=== PATIENT | female | born 2000 | race Caucasian/White ===

== ENCOUNTER 2022-01-17 12:00 | Emergency (ER) | payer OTHER ==
[2022-01-17 12:51] LABS: #Basophils 0.1 10x3/uL (0.0-0.2); #Eosinphils 0.2 10x3/uL (0.0-0.5); #Monocytes 0.8 10x3/uL (0.0-1.1); %Basophils 0.5 % (0.0-2.0); %Eosinophils 2.5 % (0.0-6.0); %Lymphocytes 24.8 % (18.0-47.0); %Neutrophils 63.4 % (40.0-75.0); Hemoglobin 11.8 g/dL (12.0-15.5); Mean Corpuscular HGB CONC 33.3 g/dL (32.0-36.0); Mean Corpuscular Hemoglobin 25.1 pg (27.0-33.0); Mean Corpuscular Volume 75.2 fl (81.6-98.3); Mean Platelet Volume 9.2 fl (7.4-10.4); Platelet Count 509 10x3/uL (150-450); RBC Distribution Width 12.9 % (11.5-14.5); Red Blood Cell (RBC) Count 4.71 10x6/uL (3.90-5.03); White Blood Cell (WBC) Count 9.5 10x3/uL (3.5-10.5)
[2022-01-17 12:52] LABS: Bilirubin Neg (Negative); Blood, Urine Negative (Negative); Clarity Clear (Clear); Glucose, Urine (Dipstick) Normal (Negative); Ketone, Urine Negative (Negative); Leukocyte Negative (Negative); Nitrite Negative (Negative); Protein, Urine (Dipstick) Negative (Neg-Trace); Urobilinogen Normal mg/dL (Less than 2)
[2022-01-17 13:03] LABS: ALT (SGPT) 39 U/L (8-55); AST (SGOT) 26 U/L (5-34); Albumin 4.5 g/dL (3.5-5.0); Alkaline Phosphatase 102 U/L (40-100); Anion Gap 12 mmol/L (10-20); BUN (Urea Nitrogen) 7 mg/dL (7.0-18.7); Bilirubin, Total 0.4 mg/dL (0.2-1.2); Calc. Creatinine Clearance 0 mL/min (70-130); Calcium 9.3 mg/dL (7.8-10.44); Carbon Dioxide 22 mmol/L (22-29); Chloride 105 mmol/L (98-107); Estimated GFR 127; Globulin 3.3 g/dL (2.4-3.5); Glucose 96 mg/dL (70-105); Potassium 3.8 mmol/L (3.5-5.1); Protein, Total 7.8 g/dL (6.0-8.3); Sodium 135 mmol/L (136-145)
[2022-01-18 13:16] LABS: GC by PCR *Indeterminate (NotDetected)
[2022-01-18 13:17] LABS: Chlamydia by PCR *Indeterminate (NotDetected)
== END 2022-01-17 16:10 | disposition home or self-care (01) ==
LOC: CSHERS 12:00
DX: O20.0 Threatened abortion (principal); Z3A.01 Less than 8 weeks gestation of pregnancy
CPT/HCPCS: 36415; 76856; 80053; 81003; 84702; 85025; 86900; 86901; 87480; 87491; 87510; 87591; 87660

== ENCOUNTER → 2022-08-10 | Day surgery (SDC) | payer OTHER ==
[~2022-08-10] MED LIST: Acetaminophen 500 MG TAB ONE; Acetaminophen 500 MG TAB PO SCH; Iron Sucrose Complex 500 MG in Sodium Chloride 0.9% 250 ML 250 ML IVPB SCH
== END ==
LOC: CSHSDC 09:40
PROVIDERS: ATTEND Student in an Organized Health Care Education/Training Program
DX: O99.019 Anemia complicating pregnancy, unspecified trimester (principal); D64.9 Anemia, unspecified
CPT/HCPCS: J1756; J7050

== ENCOUNTER 2022-08-11 17:46 | Day surgery (SDC) | payer OTHER ==
[2022-08-11] MEDS ORDERED: hydrALAZINE 20 MG/ML VIAL SLOW IVP PRN (19:16)
[2022-08-11 19:19] VITALS: BMI 41.3
== END 2022-08-11 20:07 | disposition home or self-care (01) ==
LOC: CSHERS 17:46 → CSHLD/OP 17:46 → CSHERS 17:46 → EDSTATUS 18:02 → CSHLD/OP 18:28
PROVIDERS: ATTEND Student in an Organized Health Care Education/Training Program
DX: O99.413 Diseases of the circulatory system complicating pregnancy, third trimester (principal); R00.0 Tachycardia, unspecified; O99.213 Obesity complicating pregnancy, third trimester; E66.9 Obesity, unspecified; O99.013 Anemia complicating pregnancy, third trimester; D64.9 Anemia, unspecified; O99.613 Diseases of the digestive system complicating pregnancy, third trimester; K21.9 Gastro-esophageal reflux disease without esophagitis; O10.013 Pre-existing essential hypertension complicating pregnancy, third trimester; Z90.89 Acquired absence of other organs; Z88.4 Allergy status to anesthetic agent; Z3A.34 34 weeks gestation of pregnancy
CPT/HCPCS: 99282; 99283

== ENCOUNTER 2022-09-12 10:47 | Inpatient (IN) | payer OTHER ==
[~2022-09-12 10:47] MED LIST changes: -Acetaminophen 500 MG TAB ONE; -Acetaminophen 500 MG TAB PO SCH; -Iron Sucrose Complex 500 MG in Sodium Chloride 0.9% 250 ML 250 ML IVPB SCH; +ePHEDrine 50 MG/ML VIAL ONE
[2022-09-12] MEDS ORDERED: hydrALAZINE 20 MG/ML VIAL SLOW IVP PRN ×4 (11:54→17:18)
[2022-09-12] MEDS ORDERED: Lactated Ringer's 1,000 ML IV SCH (12:15)
[2022-09-12 12:54] LABS: #Eosinphils 0.2 10x3/uL (0.0-0.5); #Monocytes 0.7 10x3/uL (0.0-1.1); #Neutrophils 9.8 10x3/uL (1.5-8.4); %Basophils 0.3 % (0.0-2.0); %Eosinophils 1.7 % (0.0-6.0); %Lymphocytes 11.8 % (18.0-47.0); %Neutrophils 79.6 % (40.0-75.0); Hemoglobin 10.8 g/dL (12.0-15.5); Mean Corpuscular HGB CONC 32.1 g/dL (32.0-36.0); Mean Corpuscular Hemoglobin 23.1 pg (27.0-33.0); Mean Corpuscular Volume 71.9 fl (81.6-98.3); Mean Platelet Volume 10.1 fl (7.4-10.4); Platelet Count 323 10x3/uL (150-450); RBC Distribution Width 17.6 % (11.5-14.5); Red Blood Cell (RBC) Count 4.67 10x6/uL (3.90-5.03); White Blood Cell (WBC) Count 12.3 10x3/uL (3.5-10.5)
[2022-09-12 13:04] LABS: ALT (SGPT) 14 U/L (8-55); AST (SGOT) 15 U/L (5-34); Albumin 3.4 g/dL (3.5-5.0); Alkaline Phosphatase 218 U/L (40-110); Anion Gap 15 mmol/L (10-20); BUN (Urea Nitrogen) 8 mg/dL (7.0-18.7); Bilirubin, Total 0.2 mg/dL (0.2-1.2); Calc. Creatinine Clearance 0 mL/min (70-130); Calcium 8.8 mg/dL (7.8-10.44); Carbon Dioxide 20 mmol/L (22-29); Chloride 105 mmol/L (98-107); Estimated GFR 130; Globulin 2.8 g/dL (2.4-3.5); Glucose 91 mg/dL (70-105); Potassium 3.7 mmol/L (3.5-5.1); Protein, Total 6.2 g/dL (6.0-8.3); Sodium 136 mmol/L (136-145)
[2022-09-12 13:10] LABS: Creatinine, Urine 176.59 mg/dL (47-110)
[2022-09-12] MEDS ORDERED: Misoprostol 200 MCG TAB PR PRN (15:00)
[2022-09-12] MEDS ORDERED: Methylergonovine 0.2 MG/ML VIAL IM PRN (15:00)
[2022-09-12] MEDS ORDERED: Promethazine HCl 25 MG/ML VIAL IM PRN (15:00)
[2022-09-12] MEDS ORDERED: Tranexamic Acid 1,000 MG/10 ML VIAL IVP PRN (15:00)
[2022-09-12] MEDS ORDERED: Ibuprofen 800 MG TAB PO PRN (15:00)
[2022-09-12] MEDS ORDERED: Ondansetron PF 4 MG/2 ML Vial IVP PRN (15:00)
[2022-09-12] MEDS ORDERED: Carboprost 250 MCG/ML AMP IM PRN (15:00)
[2022-09-12] MEDS ORDERED: NS w/ Oxytocin 30 units 500 ML IV SCH ×2 (15:00)
[2022-09-12] MEDS ORDERED: Acetaminophen 500 MG TAB PO PRN (15:00)
[2022-09-12 15:44] VITALS: BMI 42.0
[2022-09-12 15:47] LABS: Syphilis Antibody Nonreactive (Nonreactive); Syphilis Antibody Index 0.04 S/CO (<1.00 Non-Reactive)
[2022-09-12 15:49] LABS: HBSAg Index 0.15 S/CO (0-0.99); Hep B Surf Ag - L&D Non-Reactive S/CO (NonReactive)
[2022-09-12] MEDS ORDERED: Lorazepam 2 MG/ML VIAL SLOW IVP PRN (17:18)
[2022-09-12] MEDS ORDERED: Labetalol HCl 100 MG/20 ML VIAL SLOW IVP PRN ×2 (17:18)
[2022-09-12] MEDS ORDERED: Calcium Gluc 4.6 MEQ/10 ML (100 MG/ML) SLOW IVP PRN (17:18)
[2022-09-12] MEDS: Magnesium Sulfate 20 gm/500 ml 20 GM/500 ML BAG IVPB SCH (17:36)
[2022-09-12] MEDS: Misoprostol 100 MCG TAB VAG SCH ×3 (19:00→23:49)
[2022-09-13] MEDS ORDERED: fentaNYL 50 mcg/mL 1 mL Vial SLOW IVP PRN ×2 (02:58→05:10)
[2022-09-13] MEDS: Misoprostol 100 MCG TAB VAG SCH (05:00)
[2022-09-13] MEDS ORDERED: fentaNYL/Ropivacaine Epidural 0 ML ONE (07:05)
[2022-09-13] MEDS ORDERED: Chloroprocaine 3% PF 20 ML VIAL ONE (08:21)
[2022-09-13] MEDS ORDERED: Morphine PF 10 MG/10 ML VIAL ONE (08:21)
[2022-09-13] MEDS: ePHEDrine Sulfate 50 MG/10 ML VIAL SLOW IVP PRN ×2 (09:30→13:45)
[2022-09-13] MEDS ORDERED: diphenhydrAMINE 50 MG/ML VIAL IVP PRN (09:41)
[2022-09-13] MEDS ORDERED: Moisturizing Cream (Eucerin) 113 GM JAR TOP PRN (09:41)
[2022-09-13] MEDS ORDERED: Naloxone HCl 0.4 mg/ml Vial IVP PRN ×2 (09:41)
[2022-09-13] MEDS ORDERED: Ondansetron PF 4 MG/2 ML Vial IVP PRN (09:41)
[2022-09-13] MEDS ORDERED: Lactated Ringer's 500 ML IV PRN (09:41)
[2022-09-13] MEDS ORDERED: Promethazine HCl 25 MG/ML VIAL IM PRN (09:41)
[2022-09-13] MEDS ORDERED: Acetaminophen 325 MG TAB PO PRN (09:41)
[2022-09-13] MEDS ORDERED: Communication Order-Pharmacy FS SCH (09:45)
[2022-09-13] MEDS ORDERED: Lactated Ringer's 500 ML IV SCH (10:00)
[2022-09-13] MEDS ORDERED: Water For Injection,Sterile 20 ML ONE (13:05)
[2022-09-13] MEDS: Magnesium Sulfate 20 gm/500 ml 20 GM/500 ML BAG IVPB SCH (13:39)
[2022-09-13] MEDS ORDERED: fentaNYL 50 mcg/mL 1 mL Vial ONE (16:18)
[2022-09-13] MEDS ORDERED: Misoprostol 200 MCG TAB ONE (17:18)
[2022-09-13] MEDS ORDERED: Carboprost 250 MCG/ML AMP ONE (17:18)
[2022-09-13] MEDS ORDERED: Loperamide HCl 2 MG CAP PO PRN (18:02)
[2022-09-13] MEDS ORDERED: Misoprostol 200 MCG TAB PR PRN (18:03)
[2022-09-13] MEDS ORDERED: Bisacodyl 10 MG SUPP PR PRN (18:21)
[2022-09-13] MEDS ORDERED: Milk Of Magnesia 30 ML UDCUP PO PRN (18:21)
[2022-09-13] MEDS ORDERED: Boostrix 0.5 ML (Tdap) VIAL (>/=7 yrs of age) IM ONE (18:21)
[2022-09-13] MEDS ORDERED: hydrALAZINE 20 MG/ML VIAL SLOW IVP PRN (18:21)
[2022-09-13] MEDS ORDERED: CEFAZOLIN 1 GM VIAL SLOW IVP SCH (19:00)
[2022-09-13] MEDS ORDERED: CEFAZOLIN 2 GM in Sodium Chloride 0.9% 100 ML IVPB SCH (19:15)
[2022-09-13] MEDS ORDERED: Ibuprofen 800 MG TAB PO PRN (19:25)
[2022-09-13] MEDS ORDERED: Magnesium Sulfate 20 GM/WATER 500 ML BAG IVPB SCH (21:15)
[2022-09-14] MEDS: Magnesium Sulfate 20 gm/500 ml 20 GM/500 ML BAG IVPB SCH ×2 (00:33→11:30)
[2022-09-14 07:22] LABS: Hemoglobin 9.9 g/dL (12.0-15.5)
[2022-09-14] MEDS: Docusate 100 MG CAP PO SCH (21:08)
[2022-09-15] MEDS: Ferrous Sulfate 325 MG TAB PO SCH ×3 (07:33→17:14)
[2022-09-15] MEDS: Docusate 100 MG CAP PO SCH ×4 (07:33→22:27)
[2022-09-15 08:22] LABS: #Eosinphils 0.1 10x3/uL (0.0-0.5); #Monocytes 0.9 10x3/uL (0.0-1.1); #Neutrophils 9.8 10x3/uL (1.5-8.4); %Basophils 0.2 % (0.0-2.0); %Eosinophils 0.8 % (0.0-6.0); %Lymphocytes 16.8 % (18.0-47.0); %Neutrophils 74.7 % (40.0-75.0); Mean Corpuscular HGB CONC 31.2 g/dL (32.0-36.0); Mean Corpuscular Hemoglobin 22.9 pg (27.0-33.0); Mean Corpuscular Volume 73.6 fl (81.6-98.3); Mean Platelet Volume 10.3 fl (7.4-10.4); Platelet Count 408 10x3/uL (150-450); RBC Distribution Width 18.4 % (11.5-14.5); Red Blood Cell (RBC) Count 4.36 10x6/uL (3.90-5.03); White Blood Cell (WBC) Count 13.2 10x3/uL (3.5-10.5)
[2022-09-16] MEDS: Ferrous Sulfate 325 MG TAB PO SCH ×2 (09:12→10:15)
[2022-09-16] MEDS: Docusate 100 MG CAP PO SCH ×2 (09:12→10:15)
[2022-09-16 18:02] VITALS: BP 130/83; TEMP 99
== END 2022-09-16 13:11 | disposition home or self-care (01) | DRG 806 ==
LOC: CSHLD/OP 10:47 → CSHLD 17:13 → CSHPP 09-14 18:34
PROVIDERS: ADMIT Obstetrics & Gynecology; ATTEND Obstetrics & Gynecology
PROC: 3E0P7VZ Introduction of Hormone into Female Reproductive, Via Natural or Artificial Opening (ICD-10-PCS; 2022-09-12)
PROC: 10E0XZZ Delivery of Products of Conception, External Approach (ICD-10-PCS; principal; 2022-09-13)
PROC: 0HQ9XZZ Repair Perineum Skin, External Approach (ICD-10-PCS; 2022-09-13)
PROC: 10907ZC Drainage of Amniotic Fluid, Therapeutic from Products of Conception, Via Natural or Artificial Opening (ICD-10-PCS; 2022-09-13)
PROC: 10H07YZ Insertion of Other Device into Products of Conception, Via Natural or Artificial Opening (ICD-10-PCS; 2022-09-13)
DX: O10.92 Unspecified pre-existing hypertension complicating childbirth (principal); O72.1 Other immediate postpartum hemorrhage; Z37.0 Single live birth; Z3A.38 38 weeks gestation of pregnancy; Z90.89 Acquired absence of other organs; Z79.82 Long term (current) use of aspirin; Z79.899 Other long term (current) drug therapy; Z88.8 Allergy status to other drugs, medicaments and biological substances; O99.214 Obesity complicating childbirth; E66.9 Obesity, unspecified; O70.0 First degree perineal laceration during delivery; O11.4 Pre-existing hypertension with pre-eclampsia, complicating childbirth; O77.0 Labor and delivery complicated by meconium in amniotic fluid; D50.9 Iron deficiency anemia, unspecified; O90.81 Anemia of the puerperium; K21.9 Gastro-esophageal reflux disease without esophagitis; O99.62 Diseases of the digestive system complicating childbirth
CPT/HCPCS: 36415; 51702; 80053; 82570; 82805; 84156; 85014; 85018; 85025; 86780; 86850; 86900; 86901; 87340; 99285; J0360; J2274; J2401; J2405; J2590; J3010; J3475; J3490

== ENCOUNTER 2024-12-19 09:52 | Observation (INO) | payer BC, MEDICAID ==
[2024-12-19] MEDS ORDERED: Carboprost 250 MCG/ML AMP IM PRN (10:00)
[2024-12-19] MEDS ORDERED: Ondansetron PF 4 MG/2 ML Vial IVP PRN (10:00)
[2024-12-19] MEDS ORDERED: hydrALAZINE 20 MG/ML VIAL SLOW IVP PRN (10:00)
[2024-12-19] MEDS ORDERED: Acetaminophen 500 MG TAB PO PRN (10:00)
[2024-12-19] MEDS ORDERED: Tranexamic Acid 1,000 MG/10 ML VIAL IVP PRN (10:00)
[2024-12-19] MEDS ORDERED: Diphenoxylate HCl/Atropine Tablet PO PRN (10:00)
[2024-12-19] MEDS ORDERED: Methylergonovine 0.2 MG/ML VIAL IM PRN (10:00)
[2024-12-19] MEDS ORDERED: Oxytocin 30 units/NS 500 ML 500 ML IV SCH (10:00)
[2024-12-19 10:30] VITALS: BMI 44.4
[2024-12-19 10:59] LABS: Hematocrit 33.5 % (34.9-44.5); Hemoglobin 10.3 g/dL (12.0-15.5); Mean Corpuscular Hemoglobin 22.2 pg (27.0-33.0); Mean Corpuscular Volume 72.0 fL (81.6-98.3); Platelet Count 307 10x3/uL (150-450); Red Blood Cell (RBC) Count 4.65 10x6/uL (3.90-5.03); White Blood Cell (WBC) Count 10.67 10x3/uL (3.5-10.5)
[2024-12-19] MEDS ORDERED: Mineral Oil ENEMA FS SCH (11:15)
[2024-12-19 11:38] LABS: Hep B Surf Ag - L&D Non-Reactive S/CO (NonReactive)
[2024-12-19 11:39] LABS: Syphilis Antibody Index 0.05 S/CO (<1.00 Non-Reactive)
== END 2024-12-19 12:20 | disposition home or self-care (01) ==
LOC: CSHLD 09:52
PROVIDERS: ADMIT Obstetrics & Gynecology; ATTEND Obstetrics & Gynecology
DX: O32.1XX0 Maternal care for breech presentation, not applicable or unspecified (principal); O99.213 Obesity complicating pregnancy, third trimester; E66.9 Obesity, unspecified; Z3A.37 37 weeks gestation of pregnancy; Z88.8 Allergy status to other drugs, medicaments and biological substances
CPT/HCPCS: 76815; 85027; 86780; 86850; 86900; 86901; 87340; G0378

== ENCOUNTER 2025-01-02 05:03 | Inpatient (IN) | payer BC, MEDICAID ==
[~2025-01-02 05:03] MED LIST changes: +Azithromycin 500 MG in Sodium Chloride 0.9% 250 ML 250 ML IVPB SCH; +Bicitra 30 ML UDCUP PO PRN; +Carboprost 250 MCG/ML AMP IM PRN; +Diphenoxylate HCl/Atropine Tablet PO PRN; +Famotidine/PF 20 mg/2ml Vial SLOW IVP PRN; +Methylergonovine 0.2 MG/ML VIAL IM PRN; +Ondansetron PF 4 MG/2 ML Vial IVP PRN; +Oxytocin 30 units/NS 500 ML 500 ML IV SCH; +Tranexamic Acid 1,000 MG/10 ML VIAL IVP PRN; -ePHEDrine 50 MG/ML VIAL ONE; +hydrALAZINE 20 MG/ML VIAL SLOW IVP PRN
[2025-01-02 05:35] VITALS: BMI 45.7
[2025-01-02 06:42] LABS: Hematocrit 33.2 % (34.9-44.5); Hemoglobin 10.6 g/dL (12.0-15.5); Mean Corpuscular Hemoglobin 22.6 pg (27.0-33.0); Mean Corpuscular Volume 70.8 fL (81.6-98.3); Platelet Count 321 10x3/uL (150-450); Red Blood Cell (RBC) Count 4.69 10x6/uL (3.90-5.03); White Blood Cell (WBC) Count 11.94 10x3/uL (3.5-10.5)
[2025-01-02] MEDS ORDERED: Meperidine HCl/PF 25 MG (1 mL) VIAL SLOW IVP PRN (06:42)
[2025-01-02] MEDS ORDERED: Ondansetron PF 4 MG/2 ML Vial IVP PRN ×3 (06:42→08:49)
[2025-01-02] MEDS ORDERED: HYDROmorphone 0.5 MG/0.5 ML SYRINGE SLOW IVP PRN (06:42)
[2025-01-02] MEDS ORDERED: diphenhydrAMINE 50 MG/ML VIAL IVP PRN (06:42)
[2025-01-02] MEDS ORDERED: Ketorolac Tromethamine 30 MG (1 mL) VIAL IVP SCH (06:45)
[2025-01-02] MEDS: Azithromycin 500 MG VIAL ONE (07:15)
[2025-01-02 07:21] LABS: Syphilis Antibody Index 0.06 S/CO (<1.00 Non-Reactive)
[2025-01-02 07:22] LABS: Hep B Surf Ag - L&D Non-Reactive S/CO (NonReactive)
[2025-01-02] MEDS ORDERED: hydrALAZINE 20 MG/ML VIAL SLOW IVP PRN ×3 (08:49→09:00)
[2025-01-02] MEDS ORDERED: Methylergonovine 0.2 MG/ML VIAL IM PRN (08:49)
[2025-01-02] MEDS ORDERED: Boostrix 0.5 ML (Tdap) VIAL (>/=7 yrs of age) IM ONE (09:00)
[2025-01-02] MEDS ORDERED: Oxytocin 30 units/NS 500 ML 500 ML IV SCH (09:00)
[2025-01-02] MEDS ORDERED: Calcium Gluc 4.6 MEQ/10 ML (100 MG/ML) SLOW IVP PRN (09:00)
[2025-01-02] MEDS: Ketorolac Tromethamine 30 MG (1 mL) VIAL IVP PRN (11:08)
[2025-01-02] MEDS: Acetaminophen 500 MG TAB PO SCH (23:35)
[2025-01-03] MEDS: Clindamycin/D5W 900 MG in Premix 1 BAG IVPB SCH (00:14)
[2025-01-03] MEDS: Gentamicin 380 MG, Admixture Fee 1 EACH in Sodium Chloride 0.9% 100 ML IVPB SCH (01:05)
[2025-01-03 04:51] LABS: Glucose, Urine (Dipstick) Normal (Negative); Leukocyte 100 (Negative); Protein, Urine (Dipstick) 100 mg/dl (Neg-Trace); Specific Gravity, Urine 1.015 (1.005-1.030)
[2025-01-03 05:05] LABS: Bacteria/HPF 1+ HPF (None Seen); CAUTI Indications for Culture Fever or rigors; WBC/HPF 0-3 HPF (0-3)
[2025-01-03 05:07] LABS: Urine Culture Reflex No No
[2025-01-03 05:31] LABS: Hematocrit 28.8 % (34.9-44.5); Hemoglobin 9.3 g/dL (12.0-15.5); Mean Corpuscular Hemoglobin 22.7 pg (27.0-33.0); Mean Corpuscular Volume 70.4 fL (81.6-98.3); Platelet Count 280 10x3/uL (150-450); Red Blood Cell (RBC) Count 4.09 10x6/uL (3.90-5.03); White Blood Cell (WBC) Count 10.94 10x3/uL (3.5-10.5)
[2025-01-03 06:06] LABS: #Basophils Less than 0.03 10x3/uL (0.0-0.2); #Eosinophils 0.07 10x3/uL (0.0-0.5); #Monocytes 0.91 10x3/uL (0.0-1.1); #Neutrophils 8.23 10x3/uL (1.5-8.4); %Basophils 0.2 % (0.0-2.0); %Eosinophils 0.6 % (0.0-6.0); %Lymphocytes 15.2 % (18.0-47.0); %Monocytes 8.3 % (0.0-10.0); %Neutrophils 75.2 % (40.0-75.0); Anisocytosis SLIGHT = 6-15 cells (100X) (0-5/hpf); Macrocytosis SLIGHT = 6-15 cells (100X) (0-5/hpf); Platelet Adequacy Comment Appears Adequate; Poikilocytosis MODERATE=16-30 cells (100X) (0-5/hpf); Stomatocytes MODERATE= 6-15 cells (100X) (0-1/hpf)
[2025-01-03] MEDS: HYDROcodone/Acetaminophen 5/325 mg Tablet PO PRN (09:07)
[2025-01-03] MEDS: Ibuprofen 800 MG TAB PO SCH (15:51)
[2025-01-03] MEDS: Simethicone Chewable 80 MG TAB PO PRN (22:45)
[2025-01-04] MEDS: Cephalexin 500 MG CAP PO SCH (05:44)
[2025-01-04] MEDS: Hepatitis B Vaccine 10 MCG/0.5 ML SYR ONE (07:54)
[2025-01-04] MEDS: PHENYLEPHRINE-NS 100 MCG/ML 10 ML SYRINGE ONE (07:55)
[2025-01-04] MEDS: Erythromycin Base 0.5% Oint 1 GM TUBE ONE (07:55)
[2025-01-04] MEDS: Oxytocin 10 UNITS/ML VIAL ONE (07:56)
[2025-01-04] MEDS: Ondansetron PF 4 MG/2 ML Vial ONE (07:57)
[2025-01-04 22:41] VITALS: BP 106/61; TEMP 97.7
== END 2025-01-04 11:00 | disposition home or self-care (01) | DRG 787 ==
LOC: CSHLD 05:03 → CSHPP 11:18
PROVIDERS: ADMIT Obstetrics & Gynecology; ATTEND Obstetrics & Gynecology
PROC: 10D00Z1 Extraction of Products of Conception, Low, Open Approach (ICD-10-PCS; principal; 2025-01-02)
PROC: 3E03329 Introduction of Other Anti-infective into Peripheral Vein, Percutaneous Approach (ICD-10-PCS; 2025-01-02)
DX: O99.214 Obesity complicating childbirth (principal); N39.0 Urinary tract infection, site not specified; O99.02 Anemia complicating childbirth; O32.1XX0 Maternal care for breech presentation, not applicable or unspecified; O86.20 Urinary tract infection following delivery, unspecified; O86.4 Pyrexia of unknown origin following delivery; Z37.0 Single live birth; Z3A.39 39 weeks gestation of pregnancy; Z79.899 Other long term (current) drug therapy
CPT/HCPCS: 36415; 51702; 81001; 84145; 85025; 85027; 86780; 86850; 86900; 86901; 87040; 87086; 87340; 99285; J0456; J1580; J1885; J2274; J2590; J3490; J7120